=== PATIENT | male | born 1955 | race African-American/Black ===

== ENCOUNTER → 2023-04-16 08:16 | Outpatient (REF) | payer MEDICARE, OTHER, SELFPAY | LOC: DHCBC/DCA 08:16 | PROVIDERS: ATTENDING PHYSICIAN Internal Medicine; FAMILY PHYSICIAN Family Medicine | DX: R07.9 Chest pain, unspecified (principal) | CPT/HCPCS: 78452; 93017; A9500 ==

== ENCOUNTER 2023-04-26 09:20 | Day surgery (SDC) | payer MEDICARE, BC, SELFPAY ==
[2023-04-26] VITALS (10 sets, daily range): BP systolic 115–146; BP diastolic 63–88; BMI 36.1
[2023-04-26] MEDS: NSS 372 ML IV (10:14)
--- NOTE | 2023-04-26 11:48 | ITS.CL.CATH ---
[employer] Operator - Catheterization
Cardiac Catheterization
Procedure Report:
CARDIAC CATHETERIZATION REPORT
Date of Procedure: 04/26/2023
Referring: Bishnu Jha M.D.
INDICATION: Chest pressure, shortness of breath, abnormal stress test.
PROCEDURE:
1. Left heart catheterization.
2. Coronary angiography.
3. Left ventriculography.
ACCESS:
6 Mexican right radial artery.
CATHETERS:
1. 5 Mexican JL 3.5.
2. 5 Mexican JR4.
3. 5 Mexican angled pigtail.
HEMODYNAMIC DATA
Weight (kg): 124.0
AO (s/d/x, mmHg): 116/76/93
LV (s/x mmHg): 120/24
LEFT VENTRICULOGRAPHY: Performed in an SHEA projection. Top normal left ventricular size with normal systolic function. Left ventricular ejection fraction estimated at 55%. There is no mitral regurgitation. There is no aortic valve
insufficiency. The aortic root and proximal ascending aorta appear normal.
CORONARY ANGIOGRAPHY
Dominance: Right.
Left Main: Large size, trifurcating vessel. There is no coronary artery disease.
LAD: Large size vessel giving rise to several small diagonals before wrapping around the apex and supplying the distal inferior septum. There are minor luminal irregularities throughout the body of the vessel.
Ramus: Medium to large size vessel supplying the majority of the anterolateral wall. There is no coronary artery disease.
Circumflex: Large size, nondominant vessel giving rise to a single obtuse marginal which immediately bifurcates into an upper and lower branch. The lower branch is a large vessel which subsequently bifurcates into 2 daughter branches. There are
minor luminal irregularities.
RCA: Normal size, dominant vessel. There are minor luminal irregularities.
INTERVENTION(S)
None.
Closure Device: Vascular band.
Radiation (mGy): 668.81
DAP (cm2.Gy): 58.6352
Fluoroscopy time (minutes): 2.5
Sedation time (minutes): 20
CONCLUSIONS
1. Right dominant circulation with minor luminal irregularities throughout the entire coronary tree.
2. Severely elevated filling pressures (LVEDP = 24 mmHg at 124.0 kg).
3. Top normal left ventricular size with preserved systolic function. Left ventricular ejection fraction estimated at 55%. No significant valvulopathy observed.
RECOMMENDATIONS:
1. Expectant management after cardiac catheterization via right radial approach.
2. Limited weight bearing on the right wrist for one week.
3. Start furosemide 40 mg daily with BMP in 1 week.
4. Guideline directed medical therapy and primary preventive medical therapy as hemodynamics will tolerate.
5. Echocardiogram ordered and pending as an outpatient.
6. Stable for outpatient cardiology follow-up.
Copy to: Bishnu Jha M.D., Khanh Magallanes M.D.
Reinaldo Reagan DO, FACC, FACP
== END 2023-04-26 14:26 | disposition home or self-care (01) ==
LOC: CATH 09:20
PROVIDERS: ATTENDING PHYSICIAN Internal Medicine Cardiovascular Disease; FAMILY PHYSICIAN Family Medicine; OTHER PHYSICIAN Internal Medicine
DX: R07.89 Other chest pain (principal); R94.39 Abnormal result of other cardiovascular function study; R06.02 Shortness of breath; I10 Essential (primary) hypertension; R01.1 Cardiac murmur, unspecified; E66.9 Obesity, unspecified; Z68.36 Body mass index [BMI] 36.0-36.9, adult; Z79.01 Long term (current) use of anticoagulants
CPT/HCPCS: 93458; C1894; Q9967

== ENCOUNTER → 2023-05-10 12:19 | Outpatient (REF) | payer MEDICARE, BC, SELFPAY | LOC: RCS 12:19 | PROVIDERS: ATTENDING PHYSICIAN Internal Medicine; FAMILY PHYSICIAN Family Medicine | DX: R07.9 Chest pain, unspecified (principal) | CPT/HCPCS: 93306 ==

== ENCOUNTER → 2023-05-11 12:42 | Outpatient (REF) | payer MEDICARE, BC, SELFPAY | LOC: RSP 12:42 | PROVIDERS: ATTENDING PHYSICIAN Internal Medicine; FAMILY PHYSICIAN Family Medicine | DX: R06.02 Shortness of breath (principal) | CPT/HCPCS: 94727; 94729; 88738; 94060 ==

== ENCOUNTER → 2023-06-07 21:00 | Outpatient (REF) | payer MEDICARE, BC, SELFPAY | LOC: DHSLP 21:00 | PROVIDERS: ATTENDING PHYSICIAN Internal Medicine; FAMILY PHYSICIAN Family Medicine | DX: G47.33 Obstructive sleep apnea (adult) (pediatric) (principal) | CPT/HCPCS: 95800 ==

== ENCOUNTER → 2024-09-08 09:05 | Outpatient (REF) | payer MEDICARE, BC, SELFPAY | LOC: HWRCS 09:05 | PROVIDERS: ATTENDING PHYSICIAN Internal Medicine; FAMILY PHYSICIAN Family Medicine | DX: I10 Essential (primary) hypertension (principal); I77.810 Thoracic aortic ectasia | CPT/HCPCS: 93306 ==